=== PATIENT | female | born 1990 | race Caucasian/White ===

== ENCOUNTER 2021-02-04 12:25 | Emergency (ER) | payer OTHER ==
[~2021-02-04] VITALS: Ht 162.6 cm; Wt 80.2 kg
--- NOTE | 2021-02-04 16:33 | REPVR ---
PROCEDURE INFORMATION: Exam: CT Lumbar Spine Without Contrast Exam date and time: 02/04/2021 4:00 PM Age: 30 years old Clinical indication: Other: L sided back pain since May radiating down leg TECHNIQUE: Imaging protocol: Computed tomography images of the lumbar spine without contrast. Radiation optimization: All CT scans at this facility use at least one of these dose optimization techniques: automated exposure control; mA and/or kV adjustment per patient size (includes targeted exams where dose is matched to clinical indication); or iterative reconstruction. COMPARISON: No relevant prior studies available. FINDINGS: Vertebrae: No acute fracture is identified. There is minimal retrolisthesis of L1 on L2, L2 on L3, L3 on L4, and L4 on L5. Discs/Spinal canal/Neural foramina: No significant disc protrusion. No severe spinal canal stenosis. No significant neural foraminal narrowing. Sacrum/coccyx: Small sclerotic lesions are noted in the bilateral iliac bones adjacent to the sacroiliac joints, likely representing bone islands. Soft tissues: Unremarkable. IMPRESSION: No acute abnormality. Electronically signed by: Brian Russo On 02/04/2021 16:32:34 PM
[2021-02-04 16:59] VITALS: BP 124/85
== END 2021-02-04 17:01 | disposition home or self-care (01) ==
LOC: M ED 12:25
DX: M89.8X8 Other specified disorders of bone, other site (principal); M54.5 Low back pain; G89.29 Other chronic pain